=== PATIENT | female | born 1975 | race African-American/Black ===

== ENCOUNTER 2017-07-23 00:47 | Emergency (ER) | payer MEDICARE, MEDICAID ==
[~2017-07-23] VITALS: Ht 165.1 cm; Wt 65.0 kg
[~2017-07-23 00:47] MED LIST: clonazepam; lomotil; nexium; renvela; sensipar
[2017-07-23] MEDS ORDERED: SODIUM BICARBONATE 8.4% 1 MEQ/ML 50ML SYR IV ONE ×2 (01:01→01:09)
[2017-07-23 01:04] VITALS: BP 0/0
[2017-07-23] MEDS ORDERED: EPINEPHRINE 0.1MG/ML (1:10,000) 10ML SYR ONE ×2 (01:10→06:00)
[2017-07-23] MEDS ORDERED: CALCIUM CHLORIDE 1GM/10ML SYR IV ONE (06:00)
[2017-07-23] MEDS ORDERED: AMIODARONE HCL 50MG/ML 3ML VIAL IV ONE (06:00)
[2017-07-23] MEDS ORDERED: SODIUM BICARBONATE 7.5% 0.9 MEQ/ML 50ML SYR IV ONE (06:00)
== END 2017-07-23 01:04 | disposition expired ==
LOC: ER 00:47
DX: I46.9 Cardiac arrest, cause unspecified (principal); I13.2 Hypertensive heart and chronic kidney disease with heart failure and with stage 5 chronic kidney disease, or end stage renal disease; N18.6 End stage renal disease; E11.9 Type 2 diabetes mellitus without complications; Z99.2 Dependence on renal dialysis; Z90.49 Acquired absence of other specified parts of digestive tract; Z95.2 Presence of prosthetic heart valve; Z98.890 Other specified postprocedural states; Z88.8 Allergy status to other drugs, medicaments and biological substances
CPT/HCPCS: 31500; 92950; 99285; J0171; J0282; J3490